=== PATIENT | male | born 1970 | race Caucasian/White ===

== ENCOUNTER 2019-06-18 12:48 | Day surgery (SDC) | payer OTHER, SELFPAY ==
[2019-06-18] VITALS (8 sets, daily range): BP systolic 103–145; BP diastolic 63–84; PULSE 52–74; RESP 10–16; TEMP 36.4–36.7; O2SAT 96–100
--- NOTE | 2019-06-18 | PATH_ITS ---
[facility] Accession Number: [id number] . 01 Material submitted: . rectum - RECTAL POLYP . 02 Diagnosis: Rectum, Polyp, Biopsy: Hyperplastic polyp. V/06/21/2019 . 02 Electronically signed: . Aracelis Marroquin MD, Pathologist NPI- [id number] . 01 Gross description: . RECTAL POLYP: Received in formalin is 1 fragment(s) of bosch, soft tissue measuring 0.3 x 0.3 x 0.2 cm which is entirely submitted and submitted entirely in 1 cassette(s) /DMC /DMC . 02 Pathologist provided ICD-10: K62.1 . 02 CPT . 163693 Performed at: 01 [facility] [address] [id number] MD Pierce De La Rosa MD Phone: [phone] Performed at: 02 [facility] [address] [place], [place] [id number] MD Aracelis Marroquin MD Phone: [phone]
[2019-06-18] MEDS: SODIUM CHLORIDE 0.9% 1,000 ML 200 ML IV (13:13)
[2019-06-18] MEDS: HYOSCYAMINE 0.125 MG TABLET PO (13:13)
--- NOTE | 2019-06-18 13:31 | P.OP.ENDO_ITS ---
Operative Date/Time/Diagnoses Date of procedure: 06/18/19 Time of procedure: 13:29 Pre-op diagnosis: 1. Screening for colon cancer Post-op diagnosis: same Procedure & Clinicians Study performed: 1. Colonoscopy Same procedure as scheduled: Yes Indications: 1. Screening for colon cancer Surgeon: Norma Delacruz Procedure Notes Procedure in detail: ENDOSCOPIST: Norma Delacruz MD PROCEDURE: Colonoscopy with biopsy INDICATIONS: 1. Screening for colon cancer MEDICATION: Levsin 0.125 mg sublingual, incremental doses of Versed and fentanyl until appropriate level sedation achieved. ASA CLASS: 2 CECAL WITHDRAWAL TIME: 9 minutes COMPLICATIONS: None. EXTENT OF PROCEDURE: Cecum. QUALITY OF PREP: Good with portions of liquid stool. PROCEDURE: Prior to insertion of the colonoscope, a digital rectal examination was accompli shed with circumferential palpation of the distal rectal mucosa without significant findings being noted. The high-definition colonoscope was passed into the rectum in the usual fashion and advanced over to the cecum without difficulty. The ileocecal valve, appendiceal stoma, and medial wall all could be inspected and no abnormalities were seen. ASCENDING COLON: As the colonoscope was withdrawn, care was taken to expose and inspect the haustral folds and no abnormalities were seen. HEPATIC FLEXURE: Normal no polyps, diverticula or other abnormalities. TRANSVERSE COLON: Normal no polyps, diverticula or other abnormalities. DESCENDING COLON: Normal no polyps, diverticula or other abnormalities. SIGMOID COLON: Normal no polyps, diverticula or other abnormalities. RECTUM: Normal. J maneuver was produced. There was no significant perianal disease. The J maneuver was broken. The remainder of the rectum was inspected and there was a small 2 mm polyp, removed with cold biopsy forceps. No external hemorrhoid disease. The scope was withdrawn. IMPRESSION: 1. Rectal polyp x1, removed for biopsy forceps PLAN: 1. Follow up in clinic status/pathology results. The possibility of a missed lesion including a malignancy has been discussed with the patient previously. Potential alarm symptoms have been discussed and should be reported immediately. Recommendations: Will call with biopsy results Follow up: weeks (2) Disposition: PACU
[2019-06-18] MEDS: MIDAZOLAM 5 MG/5 ML VIAL IV (13:59)
[2019-06-18] MEDS: fentaNYL 250 MCG/5 ML INJ IV (14:02)
== END 2019-06-18 15:34 | disposition home or self-care (01) ==
PROVIDERS: Family Provider Family Medicine; PCP Family Medicine; Visit Provider Student in an Organized Health Care Education/Training Program
PROC: 0DJD8ZZ Inspection of Lower Intestinal Tract, Via Natural or Artificial Opening Endoscopic (ICD-10-PCS; CPT 45378; principal; 2019-06-18 14:00)
DX: Z12.11 Encounter for screening for malignant neoplasm of colon (principal); K62.1 Rectal polyp
CPT/HCPCS: 45380; J2250; J3010

== ENCOUNTER → 2023-01-20 14:11 | Outpatient (CLI) | payer OTHER, SELFPAY ==
--- NOTE | 2023-01-20 | DI.RAD.S_ITS ---
PROCEDURE: XR CHEST 2V INDICATIONS: Shortness of breath TECHNIQUE: 2 views of the chest were acquired. COMPARISON: None. FINDINGS: Surgical changes and devices: None. Lungs and pleura: Lungs are clear. No pleural effusions or pneumothorax. Mediastinum: Mediastinal contours are normal. Heart size is normal. Bones and chest wall: No suspicious bony abnormalities. Soft tissues appear unremarkable. IMPRESSION: No evidence acute pulmonary process. Dictated by: Smooth Bowden M.D. on 01/20/2023 at 15:17 Approved by: Smooth Bowden M.D. on 01/20/2023 at 15:38
== END ==
PROVIDERS: Family Provider Family Medicine; PCP Family Medicine; Referring Provider Family Medicine; Visit Provider Family Medicine
DX: R06.02 Shortness of breath (principal)
CPT/HCPCS: 71046

== ENCOUNTER → 2023-02-10 06:59 | Outpatient (CLI) | payer OTHER, SELFPAY ==
--- NOTE | 2023-02-11 22:13 | DI.NM.S_ITS ---
DATE OF SERVICE: 02/10/2023 PROCEDURE: Exercise treadmill stress and rest myocardial perfusion imaging with gating to assess ejection fraction and regional wall motion. ORDERING PROVIDER: Wiley Pimentel MD INDICATIONS: The patient is a 53-year-old, obese male with exertional dyspnea. EXERCISE TREADMILL TESTING: The patient was able to exercise for 6 minutes and 30 seconds on a standard Mckay protocol suggesting moderate-severely reduced exercise capacity with an MAN of +30%. He had a normal heart rate response to exercise, achieving a maximum heart rate of 160 BPM (96% of his predicted maximum). He had a moderate hypertensive blood pressure response with a resting blood pressure of 138/90, increasing to a maximum of 220/90. He had no chest pain or anginal symptoms. His resting ECG was normal and there were no ischemic changes with stress. He had rare isolated PVCs, but no complex ectopy identified. At 4 minutes and 54 seconds of exercise, at a heart rate of 144 BPM, 26.3 millicuries of technetium-99m Myoview was injected and he was imaged 10 minutes later using a quantitated gated SPECT protocol. The following day, he was injected with 26.6 millicuries of technetium-99m Myoview at rest and was imaged 20 minutes later, again using a quantitated gated SPECT protocol. FINDINGS: 1. Raw data: There is fair myocardial tracer uptake. The lung/heart ratio is normal at 0.38 with a normal TID ratio of 1.07. 2. Quantitated gated SPECT: Post-stress ejection fraction is estimated at 70% without any focal wall motion abnormality. Resting ejection fraction is 72% with a mildly increased left ventricular end-diastolic volume of 139 mL. 3. Myocardial perfusion imaging: Post-stress supine images show a slightly heterogeneous pattern of tracer activity but no obvious perfusion defects. There is slightly reduced tracer activity in the distal inferior wall that completely resolves on prone imaging, suggesting this reflects attenuation artifact. The resting images show a similar perfusion pattern. While the inferior defect resolves, this is nonspecific because of the resolution on the prone images. IMPRESSION: 1. Probable normal myocardial perfusion study. 2. Small, subtle, reversible distal inferoapical defect that resolves on prone imaging, most consistent with diaphragmatic attenuation. There is no compelling evidence for significant myocardial ischemia or previous myocardial infarction. 3. Normal left ventricular systolic function with mildly increased left ventricular volumes. 4. No angina or ECG evidence of ischemia with exercise. He had occasional isolated PVCs but no complex arrhythmias. Wiley Ramírez - SOFYA/magaly/manisha doc#: [id number]/job#: [id number] dd: 02/11/2023 17:11:00 dt: 02/11/2023 21:59:00 DICTATING MD/COPIES TO: Wiley Watt MD; Wiley Pimentel MD COPIES MNE: VERONICA;
== END ==
PROVIDERS: Family Provider Family Medicine; PCP Family Medicine; Referring Provider Family Medicine; Visit Provider Family Medicine
DX: R06.00 Dyspnea, unspecified (principal); E66.9 Obesity, unspecified
CPT/HCPCS: 78452; 93017; A9502

== ENCOUNTER → 2023-09-22 10:11 | Outpatient (CLI) | payer OTHER, SELFPAY ==
--- NOTE | 2023-09-22 10:13 | DI.RAD.S_ITS ---
PROCEDURE: XR LUMBAR SPINE 2-3V INDICATIONS: right buttock pain TECHNIQUE: 3 views of the lumbar spine were acquired. COMPARISON: None. FINDINGS: Bones: 5 [id number]-begqehj vertebrae are present. No acute fracture or traumatic subluxation. Kevm-tm-euqyqiip multilevel degenerative changes of the spine including anterior osteophytosis, disc height loss and facet arthropathy, notably at L5-S1. No suspicious bony lesions. Soft tissues: Overlying bowel gas pattern is normal. No suspicious soft tissue calcifications. IMPRESSION: 1. No acute fracture or traumatic subluxation. 2. Mild to moderate multilevel degenerative changes of the spine, notably at L5-S1. If pain persists, consider MRI for further evaluation. Dictated by: Salazar Disla M.D. on 09/22/2023 at 15:38 Approved by: Salazar Disla M.D. on 09/22/2023 at 15:40
--- NOTE | 2023-09-22 10:13 | DI.RAD.S_ITS ---
PROCEDURE: XR HIP W PEL IF DONE RT 2V INDICATIONS: right buttock pain TECHNIQUE: Two views of the hip were acquired. COMPARISON: None. FINDINGS: Bones: No fractures or dislocations. No suspicious bony lesions. Joint spaces are intact and symmetric. The visualized pelvic ring appears intact. Soft tissues: No suspicious soft tissue calcifications or masses. IMPRESSION: No acute fracture or dislocation. If there is high clinical suspicion for a radiographically occult fracture, consider CT or MRI for further evaluation. Dictated by: Salazar Disla M.D. on 09/22/2023 at 15:40 Approved by: Salazar Disla M.D. on 09/22/2023 at 15:45
== END ==
PROVIDERS: Family Provider Family Medicine; PCP Family Medicine; Referring Provider Family Medicine; Visit Provider Family Medicine
DX: M79.18 Myalgia, other site (principal); M47.817 Spondylosis without myelopathy or radiculopathy, lumbosacral region
CPT/HCPCS: 72100; 73502

== ENCOUNTER → 2025-09-01 12:21 | Outpatient (CLI) | payer OTHER, SELFPAY ==
--- NOTE | 2025-09-01 12:27 | DI.RAD.S_ITS ---
PROCEDURE: XR WRIST LT MIN 3V INDICATIONS: TRAUMATIC INJURY TECHNIQUE: 4 views of the wrist were acquired. COMPARISON: [facility], , XR HAND LT MIN 3V, 09/01/2025, 12:30. FINDINGS: Bones: No fractures or dislocations. No suspicious bony lesions. Soft tissues: No suspicious soft tissue calcifications. IMPRESSION: No acute bony abnormality. Dictated by: Irineo Zimmerman M.D. on 09/01/2025 at 15:29 Approved by: Irineo Zimmerman M.D. on 09/01/2025 at 15:30
--- NOTE | 2025-09-01 12:27 | DI.RAD.S_ITS ---
PROCEDURE: XR HAND LT MIN 3V INDICATIONS: TRAUMATIC INJURY TECHNIQUE: 3 views of the hand(s) acquired. COMPARISON: [facility], CR, XR WRIST LT MIN 3V, 09/01/2025, 12:30. FINDINGS: Bones: No fractures or dislocations. Carpal bones are normally aligned. No suspicious bony lesions. Soft tissues: No suspicious soft tissue calcifications. IMPRESSION: No acute bony abnormality. Dictated by: Irineo Zimmerman M.D. on 09/01/2025 at 15:27 Approved by: Irineo Zimmerman M.D. on 09/01/2025 at 15:29
== END ==
PROVIDERS: Family Provider Family Medicine; PCP Family Medicine; Referring Provider Family Medicine; Visit Provider Family Medicine
DX: S69.92XA Unspecified injury of left wrist, hand and finger(s), initial encounter (principal); X58.XXXA Exposure to other specified factors, initial encounter
CPT/HCPCS: 73110; 73130

== ENCOUNTER → 2025-10-06 19:28 | Outpatient (CLI) | payer OTHER, SELFPAY ==
--- NOTE | 2025-10-06 19:31 | DI.MRI.S_ITS ---
PROCEDURE: MR WRIST LT WO CON INDICATIONS: Unspecified injury of unspecified wrist, hand TECHNIQUE: Noncontrast coronal proton density fast spin echo and T2 fast spin echo with fat saturation; coronal 3-D gradient echo, axial T1 spin echo and T2 fast spin echo with fat saturation, sagittal T1 spin echo through the wrist. COMPARISON: None. FINDINGS: Image quality: Excellent. Bones and cartilage: The carpal bones are normally aligned. Significant marrow edema involving distal portion of distal carpal row as well as adjacent 2nd and 3rd metacarpal bases are seen . Subtle subcortical linear hypointense signal involving distal trapezoid adjacent to 2nd CMC joint is seen series 3, image 8 concerning for subcortical fracture in this area. Similar linear hypointense signal is also noted involving radial aspect of distal capitate series 3 image 7 concerning for subtle nondisplaced fracture in subcortical fracture. No other discrete fracture line is seen. Mild wrist joint osteoarthritic changes are seen with joint space narrowing and subchondral sclerosis more notably involving triscaphe joint. No evidence of avascular necrosis. Carpal ligaments: Sprain/low-grade partial-thickness tear involving dorsal component of scapholunate ligament is seen. No full-thickness ligament rupture. The lunotriquetral ligament is intact. On sagittal images, the pisohamate ligament appears intact. Triangular fibrocartilage complex: Degenerative changes are noted within triangular fibrocartilage, subtle TFC tear near its ulnar insertion cannot be excluded. The extensor carpi ulnaris tendon is thickened with intrasubstance T2 hyperintense signal and mild surrounding edema. Tendons and soft tissues: The carpal tunnel structures appear normal, including the median nerve. The ulnar nerve appears normal within Guyon's canal. All six extensor tendon compartments demonstrate normal morphology, without pathologic tendon sheath fluid. No soft tissue ganglion cysts. IMPRESSION: 1. Marrow edema involving 2nd and 3rd metacarpal basis, a distal trapezium, trapezoid and capitate with suggestion of subtle linear hypointense signal within distal capitate and trapezoid concerning for contusion and/incomplete fractures. No other fracture or dislocation. Mild wrist joint osteoarthritis. No suspicious intraosseous lesion. No evidence of avascular necrosis. 2. Low-grade partial-thickness tear/sprain involving dorsal component of scapholunate ligament. No full-thickness ligament rupture. 3. Degenerative changes seen in triangular fibrocartilage with possible subtle TFC tear near its ulnar insertion. 4. Tendinosis and low-grade intrasubstance partial-thickness tear involving extensor carpi ulnaris tendon at the level of ulnar styloid. Rest of the extensor and flexor tendons are grossly intact. Dictated by: Lacho Torres M.D. on 10/08/2025 at 11:02 Approved by: Lacho Torres M.D. on 10/08/2025 at 11:09
== END ==
LOC: MRI 19:29
PROVIDERS: Family Provider Family Medicine; PCP Family Medicine; Referring Provider Family Medicine; Visit Provider Family Medicine
DX: S63.592A Other specified sprain of left wrist, initial encounter (principal); S66.317A Strain of extensor muscle, fascia and tendon of left little finger at wrist and hand level, initial encounter; M19.032 Primary osteoarthritis, left wrist; X58.XXXA Exposure to other specified factors, initial encounter
CPT/HCPCS: 73221

== ENCOUNTER 2025-10-08 19:34 | Emergency (ER) | payer OTHER, SELFPAY ==
[2025-10-08 19:41] VITALS: BP 139/77; PULSE 89; RESP 16; TEMP 37.2; O2SAT 97; BMI 33.0
--- NOTE | 2025-10-08 21:40 | ED.LOWEXIN ---
HPI - Extremity Injury (Lower) General Chief Complaint: Extremity Injury, Lower Stated Complaint: Lt leg pain/injury Time Seen by Provider: 10/08/25 21:40 Source: patient Mode of arrival: Ambulatory History of Present Illness HPI Narrative: 55-year-old male with ongoing left wrist pain from old injury, at work earlier this afternoon started running, felt left calf pain, did not fall. History of blood clots. No chest pain or shortness of breath. No fevers or chills. No rash. No prior left Achilles or other calf problems recalled. No other injuries. Persisting pain. Related Data Home Medications ?Medication ?Instructions ?Recorded ?Confirmed meloxicam 15 mg tablet 15 mg PO DAILY 06/18/19 01/19/25 venlafaxine 37.5 mg tablet 37.5 mg PO DAILY 06/18/19 01/19/25 zolpidem 5 mg tablet 5 mg PO BEDTIME PRN Insomnia 06/18/19 01/19/25 amlodipine 10 mg tablet mg PO DAILY 01/19/25 01/19/25 chlorthalidone 50 mg tablet mg PO DAILY 01/19/25 01/19/25 losartan 100 mg tablet mg PO DAILY 01/19/25 01/19/25 testosterone cypionate 200 mg/mL mg IM 01/19/25 01/19/25 intramuscular oil Previous Rx's ?Medication ?Instructions ?Recorded massage chair #1 ea 10/18/24 Subcutaneous Supplies Kit #12 ea 01/29/25 semaglutide 0.25 mg or 0.5 mg (2 0.25 mg (0.368 mL) SUBCUT QWEEK #6 01/29/25 mg/3 mL) subcutaneous pen injector mL Allergies Allergy/AdvReac Type Severity Reaction Status Date / Time itraconazole (From Sporanox) Allergy Severe Hives Verified 01/19/25 15:30 Penicillins Allergy Severe Hives Verified 01/19/25 15:30 Sulfa (Sulfonamide Allergy Severe Hives Verified 01/19/25 15:30 Antibiotics) etodolac Allergy Hives Verified 01/19/25 15:30 Patient History Medical History (Updated 10/08/25 @ 22:33 by Td Martinez MD) Hypogonadism in male Benign essential hypertension Obesity (BMI 30.0-34.9) Social History (System 10/20/24 @ 08:16 by Ester Najera) household members: spouse Smoking Status: Never smoker Smoking Status: Never smoker Exam Narrative Exam Narrative: GENERAL: Well-developed patient, in mild distress. HEAD: Atraumatic. Normocephalic. EYES: Pupils equal round and reactive. Extraocular motions intact. No scleral icterus. No injection or drainage. ENT: Nose without bleeding, purulent drainage. Throat without erythema, tonsillar hypertrophy or exudate. Airway patent. NECK: Trachea midline. Non tender CARDIOVASCULAR: Regular rate and rhythm without murmurs, gallops, or rubs. RESPIRATORY: Clear to auscultation. Breath sounds equal bilaterally. No wheezes, rales, or rhonchi. GASTROINTESTINAL: Abdomen soft, non-tender, nondistended. EXTREMITIES: Tenderness to mid left lateral calf, without redness or abrasion or skin changes. No tenderness along the Achilles tendon/sheath, nor at Achilles tendon insertion of the calcaneus. No pain on by calcaneal compression. No mid foot tenderness or ankle medial or lateral tenderness. No tenderness at proximal aspect of gastrocnemius. BACK: Nontender without deformity or crepitance. No flank tenderness. NEURO: AOx3. Motor functions grossly nonfocal. SKIN: No rash or erythema of visible areas. Initial Vital Signs Initial Vital Signs: Vital Signs Temperature 98.9 F 10/08/25 19:41 Pulse Rate 89 10/08/25 19:41 Respiratory Rate 16 10/08/25 19:41 Blood Pressure 139/77 10/08/25 19:41 Pulse Oximetry 97 10/08/25 19:41 Oxygen Delivery Method Room Air 10/08/25 19:41 Course Vital Signs Vital signs: Vital Signs - 8 hr 10/08/25 19:41 10/08/25 23:42 Temperature 98.9 F 98.0 F Pulse Rate 89 96 H Respiratory Rate 16 20 Blood Pressure 139/77 128/72 Pulse Oximetry 97 96 Oxygen Delivery Method Room Air Room Air MDM - Extremity Injury (Lower) MDM Narrative Medical decision making narrative: 55-year-old male with running episode at work earlier this afternoon, left posterolateral mid calf pain. No tenderness along Achilles. No calcaneal tenderness with bilateral pressure. Symptoms consistent with acute calf/gastroc strain. No imaging indicated at this time. Advised crutches or walker, though he has old injury left wrist and can not use these devices when offered. Could consider wheelchair. Trial of walking boot. Walking boot did provide significant comfort, you preferred not to exacerbate his ongoing left wrist pain, does not want to have wheelchair at this time. Off work next 2 days. Shortness home with family. Recheck advised with his regular doctor in the next couple of days to reassess work status, or with local orthopedic surgery clinic. Contact information given for ortho Clinic as well. Discharged home with . Return precautions discussed. Labor and industry forms filled out, LN Claim form #[id number]. Discharge Plan Departure Patient Disposition: Home Clinical Impression: Strain of left calf muscle Activity Restrictions/Additional Instructions: Acute left mid lateral calf pain attempting to run at work this afternoon. Tenderness on mid calf, but no tenderness proximal origin of the gastrocnemius/soleus muscles. No tenderness along the Achilles tendon, nor any discomfort with by calcaneal pressure of the heel bone. No tenderness at the insertion of the Achilles tendon. Not consistent with blood clots to the foreleg at this time. Most consistent with calf muscle strain/tear. Trial of immobilization of the ankle. We initially discussed nonweightbearing with crutches or walker but you have ongoing left wrist pain and likely can not use those devices. Trial of walking boot to immobilize the ankle to less engaged the affected calf muscle at this time. Consider wheelchair if this is not tolerable. Recheck with your regular doctor early this next week to reassess work status. Clinic contact information also provided for orthopedic surgery, if he would like to follow up with them early next week, if you can not get into your regular doctor for reassessment of work status in the early next week. Labor and industry forms filled out, to be submitted. Prescriptions: No Action (DME) massage chair See Rx Instructions .Route .MEDSUPPLY Qty: 1 0RF Rx Instructions: As directed (DME) Subcutaneous Supplies Kit See Rx Instructions .ROUTE .MEDSUPPLY Qty: 12 3RF Rx Instructions: As directed with semaglutide semaglutide 0.25 mg or 0.5 mg (2 mg/3 mL) pen injector 0.25 mg SUBCUT QWEEK Qty: 6 3RF Rx Instructions: for 4 weeks, then increase to 0.5 mg subQ weekly. ok to compound. 1 mg/mL chlorthalidone 50 mg tablet PO DAILY amlodipine 10 mg tablet PO DAILY losartan 100 mg tablet PO DAILY testosterone cypionate 200 mg/mL oil IM meloxicam 15 mg Tablet 15 mg PO DAILY venlafaxine 37.5 mg Tablet 37.5 mg PO DAILY zolpidem 5 mg Tablet 5 mg PO BEDTIME PRN (Reason: Insomnia) Referrals: Giacomo Flores MD [Physician, Orthopedic Surgery] Wiley Pimentel MD [Primary Care Provider, Family Practice] Stand Alone Forms: Patient Portal/API
--- NOTE | 2025-10-08 23:28 | PC.NURSE ---
Hand-off report received from Crystal Santana RN
[2025-10-08 23:42] VITALS: BP 128/72; PULSE 96; RESP 20; TEMP 36.7; O2SAT 96
== END 2025-10-08 23:45 | disposition home or self-care (01) ==
PROVIDERS: Emergency Provider Emergency Medicine; Family Provider Family Medicine; PCP Family Medicine
DX: S86.812A Strain of other muscle(s) and tendon(s) at lower leg level, left leg, initial encounter (principal); Y93.02 Activity, running; Y99.0 Civilian activity done for income or pay; Z86.718 Personal history of other venous thrombosis and embolism
CPT/HCPCS: 99281